=== PATIENT | male | born 1970 | race Hispanic/Latino ===

== ENCOUNTER 2020-09-11 17:33 | Emergency (ER) | payer OTHER, SELFPAY ==
[2020-09-11] VITALS (10 sets, daily range): BP systolic 110–120; BP diastolic 68–88; PULSE 51–62; RESP 8–17; TEMP 36.8; O2SAT 86–100
[2020-09-11] MEDS: diazePAM INJ (*CRX) 10 MG/2 ML SYRINGE 5 MG IV PUSH (17:54)
[2020-09-11] MEDS: MECLIZINE HCL 25 MG TABLET PO (18:05)
[2020-09-11] MEDS: SODIUM CHLORIDE 0.9% IV 1,000 ML 999 ML IV CONT (18:05)
--- NOTE | 2020-09-11 18:05 | PC.NURSE ---
Pt. O2 saturation dropped after valium adminstration. O2 saturations is 86% on room air. Pt. placed on 2L via nasal cannula and placed in an high milian's position. Pt. is 99% on 2L via nasal cannula. Pt. is lethargic. ERP aware.
[2020-09-11] MEDS: HYDROGEN PEROXIDE 3% SOLN(*SP) 473 ML BOTTLE (18:26)
--- NOTE | 2020-09-11 18:26 | ED.DIZZY ---
HPI - Dizziness General Chief Complaint: Dizziness Stated Complaint: DIZZY, NAUSEA, VOMITING Time Seen by Provider: 09/11/20 17:35 History of Present Illness HPI Narrative: Patient is a 49-year-old male who presents ER with dizziness. He reports he was laying on the floor when he had sudden onset dizziness where the room is spinning. He became diaphoretic and was vomiting. There is no chest pain or chest pressure. He is feeling anxious with the symptoms. Has not had similar symptoms before. No slurred speech or facial droop. No upper or lower extremity weakness. Related Data Allergies Allergy/AdvReac Type Severity Reaction Status Date / Time No Known Allergies Allergy Verified 09/11/20 18:28 Review of Systems Review of Systems: All systems reviewed & are unremarkable except as noted in HPI and below Constitutional: Constitutional: Denies chills, Denies fever(s) and Denies weakness ENT: Reports dizziness Gastrointestinal: Gastrointestinal: Reports nausea and Reports vomiting Psychiatric: Psychiatric: Reports anxiety PMFSH Past Medical History Medical History (Updated 09/11/20 @ 18:29 by Curtis Pereira MD) Healthy adult male Surgical History Surgical History (Updated 09/11/20 @ 18:29 by Curtis Pereira MD) No history of previous surgery Social History Social History (Updated 09/11/20 @ 18:29 by Curtis Pereira MD) Smoking status: Never smoker Exam Narrative: Exam Narrative: GENERAL: Uncomfortable-appearing, well-nourished, and in no acute distress. HEAD: Normocephalic, atraumatic. EYES: PERRL and EOMI. ENT: Mucous membranes moist. Normal right tympanic membrane. Left tympanic membrane obscured by cerumen impaction. After removal patient has normal left TM. CHEST: Clear to auscultation. No respiratory distress. HEART: Regular rate and rhythm. Normal peripheral pulses. ABDOMEN: Soft, nontender, nondistended. EXTREMITIES: Normal range of motion. No edema. SKIN: Warm, moist, no rash. NEURO: Alert and oriented x3. PSYCH: Normal mood and affect. Course Vital Signs Vital signs: Vital Signs Temperature 98.2 F 09/11/20 18:00 Pulse Rate 51 L 09/11/20 18:00 Respiratory Rate 14 09/11/20 18:00 Blood Pressure 110/68 09/11/20 18:00 Pulse Oximetry 99 07/13/21 18:00 Temperature 98.2 F 09/11/20 18:00 Pulse Rate 51 L 09/11/20 18:00 Respiratory Rate 14 09/11/20 18:00 Blood Pressure 110/68 09/11/20 18:00 Pulse Oximetry 99 09/11/20 18:06 Procedures Ear Wax Removal Left Ear: Ear Wax Removal Date: 09/11/20 Ear Wax Removal Time: 18:18 Cerumenolytic Used: Cerumenex Results: Re-examined: cerumen removed completely TM Examination: TM(s) intact, normal appearance Ear Canal Exam: atraumatic Patient Tolerated Procedure: well Complications: no problems Technique: ear canal irrigated and ear canal curetted MDM - Dizziness ECG Data EKG #1: ECG completion date: 09/11/20 ECG completion time: 17:43 EKG Interpretation: normal rate (60), sinus rhythm, no ectopy, non-specific ST changes, normal QRS, normal QT, NL axis and other (Motion artifact noted. Inferior leads.) Discharge Plan Discharge Clinical Impression: Vertigo, Impacted cerumen of left ear Patient Disposition: Home, Self-Care Condition: Stable Instructions: Motion Sickness (ED) Additional Instructions: Return the ER if you have worsening dizziness, you cannot keep down food or water, you have chest pain or shortness of breath, you have additional concerns. Prescriptions: New meclizine 25 mg tablet 25 mg PO TID PRN (Reason: dizziness) Qty: 20 RF: 0
--- NOTE | 2020-09-11 19:28 | ECG_ITS ---
Measurements Intervals [place] Rate: 60 P: 24 [place]: 125 QRS: 5 QRSD: 106 T: 43 QT: 428 QTc: 428 Interpretive Statements SINUS RHYTHM ST ELEVATION IN ANTEROLAT/HIGH LAT LEADS- PROBABLY EARLY REPOLARIZATION ABNORMALITY BASELINE ARTIFACT- I, II, III, AVR, AVL, AVF, V1-V6 BORDERLINE ECG Electronically Signed On 09-11-2020 20:42:37 CDT by Avila Hannah D.O.
== END 2020-09-11 21:02 | disposition home or self-care (01) ==
PROVIDERS: Emergency Provider Emergency Medicine; PCP Internal Medicine
DX: R42 Dizziness and giddiness (principal); H61.22 Impacted cerumen, left ear
CPT/HCPCS: 69210; 93005; 96361; 96374; 99284; A9270; J3360; J7030

== ENCOUNTER 2020-09-14 12:25 | Emergency (ER) | payer OTHER, SELFPAY ==
--- NOTE | ~2020-09-14 | XR_ITS ---
EXAMINATION: XR chest 1V portable DATE: 09/14/2020 13:43 INDICATION: Dizziness. TECHNIQUE: A single frontal view of the chest was obtained on 2 radiographs. COMPARISON: Chest 2 views 05/16/2011 FINDINGS: The chest demonstrates clear lungs without pneumonia, pleural effusion, or pneumothorax. Th e heart size is normal. IMPRESSION: 1. No acute cardiopulmonary disease. Reviewed, dictated and finalized at location A.
--- NOTE | ~2020-09-14 | CT_ITS ---
EXAMINATION: CTA brain carotid DATE: 09/14/2020 14:29 INDICATION: Dizziness. TECHNIQUE: Computed tomographic angiography (CTA) of the head was performed without and with 100 mL O mnipaque-350 intravenous contrast. CTA of the neck was performed with intravenous contrast. Automated exposure control and iterative reconstruction technique were employed. The dose-length product was 1 781.72 mGy-cm. Maximum intensity projection and volume rendered 3D-reconstructions were created by joya bang technologist on a separate workstation. COMPARISON: None. FINDINGS: HEAD CTA: There is no intracranial hemorrhage, acute infarction, or abnormal intracranial mass lesion . The ventricles are normal in size. There is mild mucosal thickening in the paranasal sinuses. There is fixation of the galarza of the maxillary sinuses. The mastoid air cells are normal. The orbits are normal. Left vertebral artery is dominant. There is no significant stenosis of basilar artery or the posterior cerebral arteries. There is no significant stenosis in the intracranial internal carotid ar teries or anterior or middle cerebral arteries. Right A1 anterior cerebral artery segment is small, a normal variant. Anterior communicating artery is normal. The posterior communicating arteries are no rmal. There is no aneurysm. NECK CTA: There is mild scarring at the lung apices. There are no pathologically enlarged lymph nodes . There is no significant stenosis of the vertebral arteries. There is no visible plaque in the proxi mal internal carotid arteries. There is 0% stenosis of the proximal right internal carotid artery rel ative to normal distal artery lumen diameter (NASCET criteria). There is 0% stenosis of the proximal left internal carotid artery relative to normal distal artery lumen diameter. The bones are unremarka ble. IMPRESSION: 1. Normal brain. No aneurysm or significant intracranial arterial stenosis. 2. 0% stenosis of the proximal internal carotid arteries relative to normal distal artery lumen diame ters (NASCET criteria). Reviewed, dictated and finalized at location A. IMPRESSION: 1. Normal brain. No aneurysm or significant intracranial arterial stenosis. 2. 0% stenosis of the proximal internal carotid arteries relative to normal dis arnaud artery lumen diameters (NASCET criteria).
[2020-09-14 12:29] VITALS: BP 115/76; PULSE 67; RESP 18; TEMP 36.7; O2SAT 100
--- NOTE | 2020-09-14 13:08 | ECG_ITS ---
Measurements Intervals [place] Rate: 58 P: 34 [place]: 125 QRS: 72 QRSD: 106 T: 39 QT: 421 QTc: 414 Interpretive Statements SINUS BRADYCARDIA INCOMPLETE RIGHT BUNDLE BRANCH BLOCK BORDERLINE ECG Electronically Signed On 09-14-2020 13:38:33 CDT by Avila Hannah D.O.
[2020-09-14 13:20] LABS: Basophils Absolute Auto 0.1 K/mm3 (0.0-0.1); Basophils Percent Auto 0.7 % (0.2-1.2); Eosinophils Absolute Auto 0.1 K/mm3 (0-0.3); Eosinophils Percent Auto 1.9 % (0-4.4); Hematocrit 42.2 % (42.0-52.0); Hemoglobin 13.7 g/dL (14.0-18.0); Immature Granulocyte Absolute 0.03 K/mm3 (0.00-0.031); Immature Granulocyte Percent A 0.4 % (0-0.5); Lymphocytes Absolute Auto 2.34 K/mm3 (0.9-3.2); Lymphocytes Percent Auto 31.7 % (18.3-44.2); Mean Corpuscular HGB Conc 32.5 g/dl (32-36); Mean Corpuscular Hemoglobin 28.7 pg (26-34); Mean Corpuscular Volume 88.3 fl (80-100); Mean Platelet Volume 11.4 fl (7.4-10.4); Monocytes Absolute Auto 0.5 K/mm3 (0.1-0.6); Monocytes Percent Auto 6.6 % (2.6-8.5); Neutrophils Absolute Auto 4.3 K/mm3 (1.3-6.7); Neutrophils Percent Auto 58.7 % (45.5-73.1); Platelet Count Result 244 k/mm3 (150-375); Red Blood Count 4.78 M/mm3 (4.6-6.20); White Blood Count 7.4 K/mm3 (4.5-10.0)
[2020-09-14] MEDS: FAMOTIDINE 20 MG/2 ML VIAL IV PUSH (13:26)
[2020-09-14] MEDS: SODIUM CHLORIDE 0.9% IV 1,000 ML 999 ML IV CONT (13:26)
[2020-09-14] MEDS: METOCLOPRAMIDE HCL INJ 10 MG/2 ML VIAL IV PUSH (13:26)
[2020-09-14 13:46] LABS: Add Urine Microscopic? YES; Appearance Urine Clear (Clear); Bilirubin Urine Negative (Negative); Blood Urine Negative (Negative); Color Urine Colorless (Yellow); Glucose Urine UA Negative (Negative); Ketones Urine Negative (Negative); Leukocyte Esterase Ur 2+ LEU/UL (Negative); Nitrate Urine Negative (Negative); Protein Urine Negative (Negative); RBC Urine 0-2 /hpf (0-2); Specific Grav Ur 1.005 (1.001-1.035); Urobilinogen Urine Negative mg/dL (<2.0); WBC Urine 0-3 /hpf
[2020-09-14 14:05] LABS: Anion Gap 8 mmol/L (8-16); Blood Urea Nitrogen 14 mg/dL (9-20); Calcium 9.5 mg/dL (8.4-10.2); Carbon Dioxide 27 mmol/L (22-30); Chloride 105 mmol/L (98-107); Estimated Glomerular Filt Rate > 60; Glucose 89 mg/dL (65-110); Potassium 3.9 mmol/L (3.4-5.0); Sodium 140 mmol/L (137-145)
[2020-09-14 14:12] LABS: Prothrombin Time 12.8 Seconds (11.1-14.7)
[2020-09-14 14:15] LABS: Partial Thromboplastin Time 28.3 SECONDS (22.3-36.8)
[2020-09-14 14:16] LABS: Troponin I < 0.012 ng/mL (0.000-0.034)
[2020-09-14 14:35] LABS: Amphetamine Screen Urine Negative (Negative); Barbiturate Screen Urine Negative (Negative); Benzodiazepines Screen Urine Negative (Negative); Cannabinoid Screen Urine Negative (Negative); Cocaine Screen Urine Negative (Negative); Methadone Screen Urine Negative (Negative); Opiate Screen Urine Negative (Negative); Phencyclidine Screen Urine Negative (Negative)
[2020-09-14 15:19] LABS: HIV 1/2 Ab P24 Ag Result Negative (Negative)
--- NOTE | 2020-09-14 15:27 | ED.GENADULT ---
HPI - General Adult General Chief complaint: Dizziness Stated complaint: Vertigo Time Seen by Provider: 09/14/20 12:52 Source: patient and RN notes reviewed Mode of arrival: ambulatory Limitations: no limitations History of Present Illness HPI narrative: Patient is a 49-year-old male who presents to emergency department for evaluation of dizziness and mild posterior headache that began Thursday patient was evaluated that day discharged home and was released home on meclizine which she has not been taking because it makes him too tired when he is at work patient on arrival to emergency department is in the room in no distress presents per request of his primary care for further evaluation patient on arrival is in the room in no distress is noted symptoms seem to worsen with activity specifically standing and moving patient does not appear uncomfortable or distressed upon arrival Related Data Allergies Allergy/AdvReac Type Severity Reaction Status Date / Time No Known Allergies Allergy Unverified 05/16/11 13:04 Review of Systems Review of Systems: All systems reviewed & are unremarkable except as noted in HPI and below PMFSH Past Medical History Medical History Anxiety Depression Hemorrhoids Insomnia Iron deficiency anemia Skin infection right buttocks unspecified Family History Family History Mother Family history of malignant neoplasm Leukemia Father Family history of lung cancer Social History Social History Smoking status: Never smoker Smoking end date: 03/02/02 Alcohol intake: never Exam Narrative: Exam Narrative: GENERAL: Well-appearing, well-nourished, and in no acute distress. HEAD: Normocephalic, atraumatic. EYES: PERRLA and EOMI. ENT: Nares clear, no rhinorrhea or epistaxis. Mucous membranes moist. Oropharynx without tonsillar hypertrophy exudate or other lesions. Bilateral TMs pearly ayala nonbulging NECK: Supple. No adenopathy or masses. No carotid bruits or JVD CHEST: Clear to auscultation. No respiratory distress. No wheezes rales or rhonchi HEART: Regular rate and rhythm. No murmur heard. Normal peripheral pulses. ABDOMEN: Soft, nontender, nondistended EXTREMITIES: Normal range of motion. No edema. SKIN: Warm, dry, no rash. NEURO: No focal deficits. Alert and oriented x3. Cranial nerves II through XII grossly intact. Normal speech and gait PSYCH: Normal mood and affect. Course Course Emergency Course: Patient in the room in no distress aware of case findings treatment plan and diagnosis agreeing to follow-up as instructed or to return if symptoms worsen or concerns patient is afebrile nontoxic-appearing given his evaluation and presentation is felt appropriate for outpatient reevaluation and advised to follow with primary care for further evaluation provided with reasons to return ABCs and vital signs intact and stable Vital Signs Vital signs: Vital Signs Temperature 98.1 F 09/14/20 12:29 Pulse Rate 67 09/14/20 12:29 Respiratory Rate 18 09/14/20 12:29 Blood Pressure 115/76 09/14/20 12:29 Pulse Oximetry 100 09/14/20 12:29 Temperature 98.1 F 09/14/20 12:29 Pulse Rate 67 09/14/20 12:29 Respiratory Rate 18 09/14/20 12:29 Blood Pressure 115/76 09/14/20 12:29 Pulse Oximetry 100 09/14/20 12:29 Medical Decision Making MDM Narrative Medical decision making narrative: Patients dizziness is without focal neurological deficits on exam. Subarachnoid hemorrhage is felt to be unlikey at this time. There is no history of fever, and neck is supple without meningismus, making meningitis unlikely. No traumatic history or signs of trauma on exam. No risk factors for CVA, risk factors reviewed. NO ocular signs on exam and in history to suggest acute glaucoma. Patients headache is felt to be a reasonab
[2020-09-14 15:45] VITALS: BP 109/74; PULSE 59; RESP 18; O2SAT 99
== END 2020-09-14 15:46 | disposition home or self-care (01) ==
PROVIDERS: Emergency Medicine Emergency Medical Services; Emergency Provider Emergency Medicine; PCP Internal Medicine
DX: R42 Dizziness and giddiness (principal); F41.9 Anxiety disorder, unspecified; F32.9 Major depressive disorder, single episode, unspecified; D50.9 Iron deficiency anemia, unspecified; I45.10 Unspecified right bundle-branch block; R00.1 Bradycardia, unspecified
CPT/HCPCS: 36415; 70496; 70498; 71045; 80048; 80307; 81001; 84484; 85025; 85610; 85730; 86703; 93005; 96361; 96374; 96375; 99284; G0432; J2765; J7030; Q9967

== ENCOUNTER 2021-04-26 12:40 | Outpatient (CLI) | payer OTHER, SELFPAY ==
--- NOTE | ~2021-04-26 | MR_ITS ---
EXAMINATION: MR brain/brain stem wo/w con DATE: 04/26/2021 13:34 INDICATION: Dizziness and giddiness. TECHNIQUE: Magnetic resonance imaging (MRI) of the brain and brainstem was performed without and with 19 mL MultiHance intravenous contrast. Sequences included sagittal and axial T1-weighted FSE, axial diffusion-weighted FS EPI, axial T2*-weighted GRE, axial T2-weighted FLAIR Propeller, and axial T2-we ighted Propeller. Postcontrast sequences included axial and coronal T1-weighted FSE. Apparent diffusi on coefficient (ADC) maps were created. COMPARISON: Head CT 09/14/2020 FINDINGS: There is no intracranial hemorrhage, acute infarction, or abnormal intracranial mass lesion . The ventricles are normal in size. The orbits are normal. The paranasal sinuses are clear. The mast oid air cells are normal. IMPRESSION: 1. Normal brain. Reviewed, dictated and finalized at location A. 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 Normal brain.
[2021-04-26 13:20] LABS: Estimated Glomerular Filt Rate > 60
== END 2021-04-26 12:41 | disposition home or self-care (01) ==
PROVIDERS: PCP Internal Medicine; Visit Provider Nurse Practitioner
DX: R42 Dizziness and giddiness (principal)
CPT/HCPCS: 70553; A9577

== ENCOUNTER 2022-06-26 10:53 | Outpatient (CLI) | payer OTHER, SELFPAY ==
[2022-06-26 19:22] LABS: Basophils Absolute Auto 0.1 K/mm3 (0.0-0.1); Basophils Percent Auto 0.9 % (0.2-1.2); Eosinophils Absolute Auto 0.2 K/mm3 (0-0.3); Eosinophils Percent Auto 2.2 % (0-4.4); Hematocrit 42.9 % (42.0-52.0); Hemoglobin 13.6 g/dL (14.0-18.0); Immature Granulocyte Absolute 0.02 K/mm3 (0.00-0.031); Immature Granulocyte Percent A 0.3 % (0-0.5); Lymphocytes Absolute Auto 1.92 K/mm3 (0.9-3.2); Lymphocytes Percent Auto 28.3 % (18.3-44.2); Mean Corpuscular HGB Conc 31.7 g/dl (32-36); Mean Corpuscular Hemoglobin 28.2 pg (26-34); Mean Platelet Volume 11.5 fl (7.4-10.4); Monocytes Absolute Auto 0.6 K/mm3 (0.1-0.6); Monocytes Percent Auto 8.8 % (2.6-8.5); Neutrophils Percent Auto 59.5 % (45.5-73.1); Platelet Count Result 268 k/mm3 (150-375); Red Blood Count 4.82 M/mm3 (4.6-6.20); Red Cell Distribution Width 14.4 % (11.5-14.5); White Blood Count 6.8 K/mm3 (4.5-10.0)
[2022-06-26 19:30] LABS: Alanine Aminotransferase 32 U/L (6-50); Albumin Level 4.5 g/dL (3.5-5.1); Alkaline Phosphatase 96 U/L (38-126); Anion Gap 2 mmol/L (8-16); Aspartate Amino Transferase 40 U/L (17-59); Bilirubin,Total 0.6 mg/dL (0.2-1.3); Blood Urea Nitrogen 17 mg/dL (9-20); Calcium 9.2 mg/dL (8.4-10.2); Carbon Dioxide 33 mmol/L (22-30); Chloride 105 mmol/L (98-107); Cholesterol 146 mg/dL (0-200); Estimated Glomerular Filt Rate > 60; Glucose 96 mg/dL (65-110); HDL Direct 51 mg/dL; Potassium 4.6 mmol/L (3.4-5.0); Sodium 140 mmol/L (137-145); Triglycerides 70 mg/dL (<150)
[2022-06-26 20:00] LABS: LDL Cholesterol Direct 73 mg/dL
== END 2022-06-26 10:54 | disposition home or self-care (01) ==
LOC: ANHGOSHLAB 10:54
PROVIDERS: PCP Internal Medicine; Visit Provider Nurse Practitioner
DX: R06.00 Dyspnea, unspecified (principal); R42 Dizziness and giddiness; Z13.220 Encounter for screening for lipoid disorders
CPT/HCPCS: 36415; 80053; 80061; 84443; 85025

== ENCOUNTER 2022-09-12 02:23 | Day surgery (SDC) | payer BC, SELFPAY ==
[2022-09-03 10:58] VITALS: BMI 23.5
[2022-09-12 07:02] VITALS: BP 100/63; PULSE 64; RESP 16; TEMP 36.2; O2SAT 100
[2022-09-12] MEDS: LACTATED RINGERS 1,000 ML 150 ML IV CONT (07:09)
--- NOTE | 2022-09-12 07:14 | PM.HPGS ---
History of Present Illness History of Present Illness Consent: Risks, benefits, and alternatives have been discussed and questions answered. Patient agrees to proceed with procedure. Chief complaint: diarrhea Narrative: Manuel Diamond is a 51 year old male Presents for colonoscopy. Patient reports alteration in his bowel habits since June of this year. Typically he is constipated. Since June he has more frequent loose and diarrhea stools. He will have watery stools sometimes alternating between soft stools throughout the day. This does not wake him at night. He has no for fever. He has no bleeding. He does get occasional abdominal pain and cramping. Patient has tried 1 fiber pill a day with no change in symptoms. Recently prescribed dicyclomine but this failed to alleviate his cramps. He was given a trial of Flagyl empirically with no change in symptoms. Patient presents today for colonoscopy. Laboratory workup for celiac disease was negative. Family history noncontributory. Patient reports a brief episode similar to this for several months a year 2 ago that resolved spontaneously. Review of Systems Review of Systems: Review of systems noncontributory. [facility] Past Medical History Medical History Anxiety Depression Healthy adult male Hemorrhoids Insomnia Iron deficiency anemia Skin infection right buttocks unspecified Surgical History Surgical History No history of previous surgery Family History Family History Mother Family history of malignant neoplasm Leukemia Father Family history of lung cancer Social History Social History Social History: Caffeine-daily Smoking status: Former smoker Smoking end date: 03/02/02 Alcohol intake: never Substance use: never Substance use type: does not use Lack of Transportation: No Lack of Food: Never True Current Housing: I Have Housing Concerned About Future Housing: No Difficulty Paying Gas/Electric Bills: Decline to Answer Difficulty Paying for Meds: No Currently Unemployed: No Education: Decline to Answer Difficulty w/ Childcare or Family Care: No Living arrangements: with friend(s) Spiritual care concerns: No Meds Home Medications and Allergies Home Medications Medication Instructions Recorded Confirmed Type venlafaxine 75 mg capsule,extended 75 mg PO DAILY #90 caps 07/25/22 09/03/22 Rx release 24 hr fluticasone propionate 50 See Rx Instructions .Route 07/30/22 09/03/22 Rx mcg/actuation nasal .COMPLEX #48 mL spray,suspension trazodone 50 mg tablet See Rx Instructions .Route 08/18/22 09/03/22 Rx .COMPLEX #135 tabs dicyclomine 20 mg tablet See Rx Instructions .Route 08/25/22 09/03/22 Rx .COMPLEX #120 tabs Allergies Allergy/AdvReac Type Severity Reaction Status Date / Time No Known Allergies Allergy Verified 09/12/22 07:01 Vital Signs Vital Signs - 24 hr 09/12/22 07:02 Temperature 97.2 F L Pulse Rate 64 Respiratory Rate 16 Blood Pressure 100/63 Pulse Oximetry 100 Oxygen Delivery Room Air Exam Narrative: Physical exam reveals patient to be alert. Vital signs stable. HEENT exam is unremarkable. Patient is anicteric. Lungs are clear to auscultation and percussion. Heart is without murmur or extra sounds. Abdomen bowel sounds are present soft nontender with no organomegaly. Digital external rectal exam is normal. Assessment and Plan Assessment and plan (1) Diarrhea: Qualifiers: Diarrhea type: unspecified type Qualified Code(s): R19.7 - Diarrhea, unspecified Code(s): R19.7 - Diarrhea, unspecified Status: Acute Assessment and Plan: Patient complains of diarrhea that has been present since June of this year. Assoc
--- NOTE | 2022-09-12 07:33 | WPDANESEPPF ---
Anes - Initial Pre Proc Eval Procedure: Operation Date: 09/12/22 08:00 Proposed Procedures p Colonoscopy - Cordell Evans MD Date/Time: 09/12/22 07:33 Surgeon: Cordell Evans MD Pre Op Diagnosis: diarrhea Patient Data Age: 51 Gender: M Height: 1.96 m Weight: 86.9 kg Last Vital Signs Temp 97.2 F L 09/12/22 07:02 Pulse 64 09/12/22 07:02 Resp 16 09/12/22 07:02 BP 100/63 09/12/22 07:02 Pulse Ox 100 09/12/22 07:02 O2 Del Method Room Air 09/12/22 07:02 Allergies Allergy/AdvReac Type Severity Reaction Status Date / Time No Known Allergies Allergy Verified 09/12/22 07:01 Home Medications Medication Instructions Recorded Confirmed Type venlafaxine 75 mg capsule,extended 75 mg PO DAILY #90 caps 07/25/22 09/03/22 Rx release 24 hr fluticasone propionate 50 See Rx Instructions .Route 07/30/22 09/03/22 Rx mcg/actuation nasal .COMPLEX #48 mL spray,suspension trazodone 50 mg tablet See Rx Instructions .Route 08/18/22 09/03/22 Rx .COMPLEX #135 tabs dicyclomine 20 mg tablet See Rx Instructions .Route 08/25/22 09/03/22 Rx .COMPLEX #120 tabs Patient hx anesthesia problems: none Family hx anesthesia problems: none Results Review: All pre-operative results and documents have been reviewed as part of the pre-operative evaluation. [facility] Past Medical History Medical History Anxiety Depression Healthy adult male Hemorrhoids Insomnia Iron deficiency anemia Skin infection right buttocks unspecified Surgical History Surgical History No history of previous surgery Family History Family History Mother Family history of malignant neoplasm Leukemia Father Family history of lung cancer Social History Social History Social History: Caffeine-daily Smoking status: Former smoker Smoking end date: 03/02/02 Alcohol intake: never Substance use: never Substance use type: does not use Lack of Transportation: No Lack of Food: Never True Current Housing: I Have Housing Concerned About Future Housing: No Difficulty Paying Gas/Electric Bills: Decline to Answer Difficulty Paying for Meds: No Currently Unemployed: No Education: Decline to Answer Difficulty w/ Childcare or Family Care: No Living arrangements: with friend(s) Spiritual care concerns: No Anes - Eval Final PreProcedure Day of Procedure 09/12/22 07:33 Patient weight: normal Heart: regular rate and rhythm Lungs: clear to auscultation Airway: Mallampati scale class II Neurological: alert and oriented Last oral intake: >/= 8 hours ASA classification: II Emergent: no Anesthetic plan: proceed Anesthesia type and monitoring: general GIVS and standard monitoring Results Review: All pre-operative results and documents have been reviewed as part of the pre-operative evaluation. Informed Consent: The patient's anesthetic plan and its attendant risks and benefits were discussed with the patient/family/POA. Questions were solicited and answers provided to the satisfaction of the patient/family/POA.
[2022-09-12 08:25] VITALS: BP 92/60; PULSE 62; RESP 16; O2SAT 95
[2022-09-12 08:35] VITALS: BP 92/62; PULSE 53; RESP 16; O2SAT 100
[2022-09-12 08:43] VITALS: BP 91/63; PULSE 54; RESP 16; O2SAT 99
== END 2022-09-12 08:58 | disposition home or self-care (01) ==
PROVIDERS: PCP Internal Medicine; Visit Provider Internal Medicine Gastroenterology
PROC: 0DJD8ZZ Inspection of Lower Intestinal Tract, Via Natural or Artificial Opening Endoscopic (ICD-10-PCS; CPT 45378; principal; 2022-09-12 08:00)
DX: Z12.11 Encounter for screening for malignant neoplasm of colon (principal); K64.8 Other hemorrhoids; R19.7 Diarrhea, unspecified; F41.9 Anxiety disorder, unspecified; F32.A Depression, unspecified; Z87.891 Personal history of nicotine dependence
CPT/HCPCS: 45380; 88305; J2704; J7120

== ENCOUNTER 2023-02-03 17:55 | Emergency (ER) | payer BC, SELFPAY ==
[2023-02-03 18:40] VITALS: BP 125/72; PULSE 70; RESP 20; TEMP 36.2; O2SAT 100
[2023-02-03] MEDS: TETANUS,DIPHTHERIA,AC PERTUSSIS ADULT (0.5 ML) BOOSTRIX IM (20:05)
--- NOTE | 2023-02-03 20:32 | ED.WOUNDLAC ---
HPI - Wound/Laceration General Chief Complaint: Wound/Laceration Stated Complaint: L THUMB LACERATION Time Seen by Provider: 02/03/23 19:54 Source: patient Mode of arrival: ambulatory Limitations: no limitations History of Present Illness HPI narrative: This is a 52-year-old male that presents to the emergency department for left thumb laceration sustained just prior to arrival. Reports he accidentally cut his thumb on a mandolin. Reports he was unable to control the bleeding initially which prompted him to be seen. He is not up-to-date on tetanus. Denies decreased range of motion or numbness. Related Data Allergies Allergy/AdvReac Type Severity Reaction Status Date / Time No Known Allergies Allergy Verified 02/03/23 19:44 Review of Systems Review of Systems: CONSTITUTIONAL: Denies fever SKIN: Reports laceration All systems reviewed & are unremarkable except as noted in HPI and below PMFSH Past Medical History Medical History Anxiety Depression Healthy adult male Hemorrhoids Insomnia Iron deficiency anemia Skin infection right buttocks unspecified Surgical History Surgical History No history of previous surgery Family History Family History Mother Family history of malignant neoplasm Leukemia Father Family history of lung cancer Social History Social History Social History: Caffeine-daily Smoking status: Former smoker Smoking end date: 03/02/02 Alcohol intake: never Substance use: never Substance use type: does not use Lack of Transportation: No Lack of Food: Never True Current Housing: I Have Housing Concerned About Future Housing: No Difficulty Paying Gas/Electric Bills: Decline to Answer Difficulty Paying for Meds: No Currently Unemployed: No Education: Decline to Answer Difficulty w/ Childcare or Family Care: No Living arrangements: with friend(s) Spiritual care concerns: No Exam Narrative: GENERAL: Well-appearing, well-nourished, and in no acute distress. HEAD: Normocephalic, atraumatic. EYES: EOMI. EXTREMITIES: Normal range of motion. No edema. Left thumb with 0.5cm circular superficial avulsion to the tip of the finger, no active bleeding SKIN: Warm, dry, no rash. NEURO: No focal deficits. Alert and oriented x3. PSYCH: Normal mood and affect Course Course Emergency Course: patient educated on further wound care Vital Signs Vital signs: Vital Signs Temperature 97.1 F L 02/03/23 18:40 Pulse Rate 70 02/03/23 18:40 Respiratory Rate 20 02/03/23 18:40 Blood Pressure 125/72 02/03/23 18:40 Pulse Oximetry 100 02/03/23 18:40 Oxygen Delivery Room Air 02/03/23 18:40 Temperature 97.1 F L 02/03/23 18:40 Pulse Rate 70 02/03/23 18:40 Respiratory Rate 20 02/03/23 18:40 Blood Pressure 125/72 02/03/23 18:40 Pulse Oximetry 100 02/03/23 18:40 Oxygen Delivery Room Air 02/03/23 18:40 Procedures Laceration Laceration 1: Date: 02/03/23 Time: 20:36 Site: hand Side (If applicable): left Size (cm): 0.5 Description: other (avulsion) Pre-repair: irrigated ====== Skin Level ====== ====== Subcutaneous Layer ====== ====== Muscle Layer ====== ====== Tendon Layer ====== Dressing: superficial skin avulsion irrigated with normal saline and covered with antibiotic ointment and a bandage MDM - Wound/Laceration MDM Narrative Medical decision making narrative: Patient presents to the emergency department for small skin avulsion to the left to 1st finger. His wound was irrigated and covered with antibiotic ointment and a bandage. He was updated on tetanus. He was educated on further wound care. He is to follow up with
[2023-02-03 20:43] VITALS: BP 124/70; PULSE 68; RESP 17; O2SAT 98
== END 2023-02-03 21:17 | disposition home or self-care (01) ==
PROVIDERS: Emergency Provider Physician Assistant; PCP Internal Medicine
DX: S61.012A Laceration without foreign body of left thumb without damage to nail, initial encounter (principal); Z23 Encounter for immunization; F41.9 Anxiety disorder, unspecified; F32.A Depression, unspecified; W26.8XXA Contact with other sharp object(s), not elsewhere classified, initial encounter
CPT/HCPCS: 90471; 90715; 99282

== ENCOUNTER 2023-07-29 11:34 | Outpatient (CLI) | payer BC, SELFPAY ==
[2023-07-29 19:31] LABS: Basophils Absolute Auto 0.1 K/mm3 (0.0-0.1); Basophils Percent Auto 1.2 % (0.2-1.2); Eosinophils Absolute Auto 0.2 K/mm3 (0-0.3); Eosinophils Percent Auto 2.4 % (0-4.4); Hematocrit 43.1 % (42.0-52.0); Hemoglobin 13.7 g/dL (14.0-18.0); Immature Granulocyte Absolute 0.02 K/mm3 (0.00-0.031); Immature Granulocyte Percent A 0.3 % (0-0.5); Mean Corpuscular HGB Conc 31.8 g/dl (32-36); Mean Corpuscular Hemoglobin 28.8 pg (26-34); Mean Corpuscular Volume 90.7 fl (80-100); Mean Platelet Volume 11.1 fl (7.4-10.4); Monocytes Absolute Auto 0.5 K/mm3 (0.1-0.6); Monocytes Percent Auto 8.2 % (2.6-8.5); Neutrophils Absolute Auto 3.7 K/mm3 (1.3-6.7); Neutrophils Percent Auto 55.9 % (45.5-73.1); Platelet Count Result 256 k/mm3 (150-375); Red Blood Count 4.75 M/mm3 (4.6-6.20); Red Cell Distribution Width 13.7 % (11.5-14.5); White Blood Count 6.6 K/mm3 (4.5-10.0)
[2023-07-29 20:44] LABS: Alanine Aminotransferase 32 U/L (6-50); Albumin Level 4.4 g/dL (3.5-5.1); Alkaline Phosphatase 85 U/L (38-126); Anion Gap 4 mmol/L (4-12); Aspartate Amino Transferase 39 U/L (17-59); Bilirubin,Total 0.7 mg/dL (0.2-1.3); Blood Urea Nitrogen 23 mg/dL (9-20); Calcium 9.4 mg/dL (8.4-10.2); Carbon Dioxide 33 mmol/L (22-30); Chloride 103 mmol/L (98-107); Cholesterol 159 mg/dL (0-200); Estimated Glomerular Filt Rate > 60; Glucose 90 mg/dL (65-110); HDL Direct 58 mg/dL; Potassium 4.1 mmol/L (3.4-5.0); Sodium 140 mmol/L (137-145); Triglycerides 41 mg/dL (<150)
[2023-07-29 20:59] LABS: LDL Cholesterol Direct 87 mg/dL
== END 2023-07-29 11:35 | disposition home or self-care (01) ==
LOC: ANHGOSHLAB 11:36
PROVIDERS: PCP Internal Medicine; Visit Provider Nurse Practitioner
DX: Z12.5 Encounter for screening for malignant neoplasm of prostate (principal); F41.9 Anxiety disorder, unspecified; Z13.220 Encounter for screening for lipoid disorders; J30.2 Other seasonal allergic rhinitis
CPT/HCPCS: 36415; 80053; 80061; 84153; 84443; 85025; G0103

== ENCOUNTER 2024-07-29 09:04 | Outpatient (CLI) | payer BC, SELFPAY ==
[2024-07-29 16:35] LABS: Basophils Absolute Auto 0.1 K/mm3 (0.0-0.1); Basophils Percent Auto 0.9 % (0.2-1.2); Eosinophils Absolute Auto 0.2 K/mm3 (0-0.3); Eosinophils Percent Auto 3.1 % (0-4.4); Hematocrit 45.9 % (42.0-52.0); Hemoglobin 14.2 g/dL (14.0-18.0); Immature Granulocyte Absolute 0.03 K/mm3 (0.00-0.031); Immature Granulocyte Percent A 0.5 % (0-0.5); Lymphocytes Absolute Auto 2.31 K/mm3 (0.9-3.2); Lymphocytes Percent Auto 36.1 % (18.3-44.2); Mean Corpuscular HGB Conc 30.9 g/dl (32-36); Mean Corpuscular Hemoglobin 28.5 pg (26-34); Mean Corpuscular Volume 92.2 fl (80-100); Monocytes Absolute Auto 0.5 K/mm3 (0.1-0.6); Monocytes Percent Auto 8.3 % (2.6-8.5); Neutrophils Absolute Auto 3.3 K/mm3 (1.3-6.7); Neutrophils Percent Auto 51.1 % (45.5-73.1); Platelet Count Result 291 k/mm3 (150-375); Red Blood Count 4.98 M/mm3 (4.6-6.20); Red Cell Distribution Width 14.6 % (11.5-14.5); White Blood Count 6.4 K/mm3 (4.5-10.0)
[2024-07-29 20:01] LABS: Alanine Aminotransferase 25 U/L (6-50); Albumin Level 4.5 g/dL (3.5-5.1); Alkaline Phosphatase 91 U/L (38-126); Anion Gap 7 mmol/L (4-12); Aspartate Amino Transferase 72 U/L (17-59); Bilirubin,Total 0.3 mg/dL (0.2-1.3); Blood Urea Nitrogen 24 mg/dL (9-20); Calcium 9.8 mg/dL (8.4-10.2); Carbon Dioxide 31 mmol/L (22-30); Chloride 102 mmol/L (98-107); Cholesterol 156 mg/dL (0-200); Estimated Glomerular Filt Rate > 60; Glucose 77 mg/dL (65-110); HDL Direct 57 mg/dL; Sodium 140 mmol/L (137-145); Triglycerides 47 mg/dL (<150)
[2024-07-29 20:12] LABS: LDL Cholesterol Direct 69 mg/dL
[2024-07-29 20:31] LABS: Prostate Specific Antigen 1.4 ng/mL (< OR = 4.0)
== END 2024-07-29 09:05 | disposition home or self-care (01) ==
LOC: ANHGOSHLAB 09:05
PROVIDERS: PCP Internal Medicine; Visit Provider Nurse Practitioner
DX: D50.9 Iron deficiency anemia, unspecified (principal); F41.9 Anxiety disorder, unspecified; R50.9 Fever, unspecified; Z12.5 Encounter for screening for malignant neoplasm of prostate; Z13.220 Encounter for screening for lipoid disorders
CPT/HCPCS: 36415; 80053; 80061; 82728; 84153; 84443; 85025; G0103